=== PATIENT | female | born 2005 | race Caucasian/White ===

== ENCOUNTER 2024-01-05 18:47 | Emergency (ER) | payer BC, OTHER ==
[2024-01-05] MEDS: Sodium Chloride 0.9% 1,000 ML IV ONE (19:11)
[2024-01-05 19:14] LABS: BASOPHILS ABSOLUTE AUTO 0.05 K/uL (0.00-0.30); BASOPHILS PERCENT AUTO 0.7 % (0.0-1.0); EOSINOPHILS ABSOLUTE AUTO 0.42 K/uL (0.00-0.70); EOSINOPHILS PERCENT AUTO 5.9 % (0.0-5.0); HEMATOCRIT 40.1 % (37.0-47.0); HEMOGLOBIN 13.2 g/dL (12.0-16.0); IMMATURE GRAN ABSOLUTE AUTO 0.02 K/uL (0.00-0.05); IMMATURE GRAN PERCENT AUTO 0.3 % (0.0-0.4); LYMPHOCYTES ABSOLUTE AUTO 2.28 K/uL (2.00-8.80); LYMPHOCYTES PERCENT AUTO 32.2 % (50.0-65.0); MEAN CORPUSCULAR HEMOGLOBIN 29.7 pg (28.0-32.0); MEAN CORPUSCULAR HGB CONC 32.9 g/dL (32.0-36.0); MEAN CORPUSCULAR VOLUME 90.3 fL (83.0-99.0); MEAN PLATELET VOLUME 9.6 fL (9.4-12.3); MONOCYTES ABSOLUTE AUTO 0.45 K/uL (0.10-1.40); MONOCYTES PERCENT AUTO 6.4 % (2.0-10.0); NEUTROPHILS ABSOLUTE AUTO 3.86 K/uL (1.50-8.50); NEUTROPHILS PERCENT AUTO 54.5 % (35.0-45.0); PLATELET COUNT,PLT 343 K/uL (150-400); RED BLOOD CELL COUNT 4.44 M/uL (4.10-5.30); WHITE BLOOD CELL COUNT,WBC 7.08 K/uL (4.5-13.5)
[2024-01-05 19:43] LABS: A/G RATIO 1.1 (0.9-1.6); ALBUMIN 3.5 g/dL (3.4-5.0); BILIRUBIN TOTAL 0.2 mg/dL (0.2-1.0); CARBON DIOXIDE,CO2 26.4 mmol/L (21.0-32.0); CREATININE 0.9 mg/dL (0.6-1.0); EST CRCL DRUG DOSING (CG) 101.42 mL/min; POTASSIUM,K 3.9 mmol/L (3.5-5.1); PROTEIN TOTAL,TP 6.7 g/dL (6.4-8.2); TSH ULTRASENSITIVE 1.19 uIU/mL (0.36-3.74)
[2024-01-05 20:24] LABS: CORONAVIRUS COVID-19 NAA NEGATIVE (NEGATIVE); INFLUENZA A NAA NEGATIVE (NEGATIVE); INFLUENZA B NAA NEGATIVE (NEGATIVE)
[2024-01-05 20:52] LABS: APPEARANCE,URINE CLEAR; BILIRUBIN,URINE NEGATIVE (NEGATIVE); COLOR,URINE YELLOW; GLUCOSE,URINE NEGATIVE (NEGATIVE); KETONES,URINE NEGATIVE (NEGATIVE); LEUKOCYTE ESTERASE,URINE NEGATIVE (NEGATIVE); NITRITE,URINE NEGATIVE (NEGATIVE); OCCULT BLOOD,URINE NEGATIVE (NEGATIVE); PROTEIN,URINE NEGATIVE (NEGATIVE); UROBILINOGEN,URINE 0.2 EU/dL (<2.0)
== END 2024-01-05 21:31 | disposition home or self-care (01) ==
LOC: MW.ED 18:47
DX: R07.9 Chest pain, unspecified (principal); Z88.0 Allergy status to penicillin; Z88.8 Allergy status to other drugs, medicaments and biological substances; Z75.8 Other problems related to medical facilities and other health care
CPT/HCPCS: 0240U; 36415; 71045; 80053; 81003; 81025; 84443; 85025; 93005; 96360; 99285; J7030; 93010

== ENCOUNTER 2024-03-19 17:05 | Emergency (ER) | payer OTHER ==
[2024-03-19] MEDS: methylPREDNISolone Sodium Succinate 125 MG/2 ML SDV IVPUSH ONE (17:49)
[2024-03-19] MEDS: Famotidine 20 MG/2 ML SDV IVPUSH ONE (17:49)
== END 2024-03-19 18:00 | disposition left against medical advice (07) ==
LOC: MW.ED 17:05
DX: T78.40XA Allergy, unspecified, initial encounter (principal); R05.9 Cough, unspecified; Z75.8 Other problems related to medical facilities and other health care; Z88.0 Allergy status to penicillin; Z88.5 Allergy status to narcotic agent
CPT/HCPCS: 96374; 96375; 99283; J2919; J3490

== ENCOUNTER 2024-10-08 09:46 | Emergency (ER) | payer OTHER ==
[2024-10-08] MEDS: Sodium Chloride 0.9% 1,000 ML IV ONE (10:05)
[2024-10-08] MEDS: diphenhydrAMINE 50 MG/ML SDV IVPUSH ONE (10:07)
[2024-10-08] MEDS: Famotidine 20 MG/2 ML SDV IVPUSH STA (10:07)
[2024-10-08] MEDS: methylPREDNISolone Sodium Succinate 125 MG/2 ML SDV IVPUSH ONE (10:07)
== END 2024-10-08 12:27 | disposition home or self-care (01) ==
LOC: MW.ED 09:46
DX: R21 Rash and other nonspecific skin eruption (principal); R05.9 Cough, unspecified; T38.0X5A Adverse effect of glucocorticoids and synthetic analogues, initial encounter; T44.5X5A Adverse effect of predominantly beta-adrenoreceptor agonists, initial encounter; Z75.3 Unavailability and inaccessibility of health-care facilities; Z88.5 Allergy status to narcotic agent; Z88.0 Allergy status to penicillin; Z79.899 Other long term (current) drug therapy
CPT/HCPCS: 96361; 96374; 96375; 99283; J1200; J2919; J7030